=== PATIENT | male | born 1980 | race Asian ===

== ENCOUNTER 2023-04-02 15:30 | Outpatient (CLI) | payer OTHER ==
--- NOTE | 2023-04-02 16:50 | XRAY Report ---
PROCEDURE: Lumbar Spine 2 View INDICATIONS: ACUTE LOWER BACK PAIN TECHNIQUE: 3 views of the lumbar spine were acquired. COMPARISON: None. FINDINGS: Bones: 5 [id number] vertebrae are present. There is normal bony alignment. No vertebral body compression fractures. No suspicious bony lesions. Soft tissues: Overlying bowel gas pattern is normal. No suspicious soft tissue calcifications. IMPRESSION: No acute bony abnormality. Comment: If pain symptoms persist, consider lumbar spine MRI. Reviewed by: Dieudonne Cutler MD on 04/02/2023 4:49 PM PST Approved by: Dieudonne Cutler MD on 04/02/2023 4:49 PM PST Station ID: [id number]
== END 2023-04-02 15:45 | disposition home or self-care (01) ==
LOC: DI.N 15:30
PROVIDERS: ATTEND Family Medicine
DX: M54.59 Other low back pain (principal)